=== PATIENT | male | born 1950 | race African-American/Black ===

== ENCOUNTER 2017-06-21 20:58 | Inpatient (IN) | payer BC, OTHER ==
[~2017-06-21] VITALS: Ht 182.9 cm; Wt 98.9 kg
--- NOTE | ~2017-06-21 | EKG ---
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 : 1950 Requested By: Darshana Aguilar Order Number: [id number] MD: Wolf Jade Measurements Intervals [place] Rate: 117 P: 50 WY: 159 QRS: 51 QRSD: 104 T: 155 QT: 341 QTc: 476 Interpretive Statements Sinus tachycardia LAE, consider biatrial enlargement Nonspecific ST segment abnormality Nonspecific intraventricular conduction delay No previous ECG available for comparison Electronically Signed On 06-23-2017 15:23:06 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
--- NOTE | ~2017-06-21 | CATHLAB ---
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 A 5FR MULTIPACK ANGLED #[id number] sheath was inserted into the RFA^. Coronary angiography was performed using coronary diagnostic catheters. The right coronary system was accessed and visualized with a 5FR AL1 #[id number] catheter. The left coronary system was accessed and visualized with a 5FR AL1 #[id number] catheter. The left ventricle was accessed and visualized with a PIGTAIL catheter. Left ventricular/Aortic Valve gradient assessed via catheter pullback. Closure device was deployed with a 5 Fr MYNXGRIP 5F #[id number]. The patient tolerated the procedure well and there were no complications associated with the procedure. 12.58 Intraoperative Conscious Sedation Sedation start time: Case end Time: 13.18 Versed mg Fluoro Time: 6.40 minutes Dose: DAP 7339.89 cGycm2 1033 mGy Contrast Type and Amount: Omnipaque 115 ml Coronary Angiography The patient's coronary anatomy is right dominant. Diagnostic Cath Left Main Large caliber vessel of anomalous origin long length and bifurcating into a left circumflex and left anterior descending well [facility] [address] [place] [address] INVASIVE PROCEDURE REPORT Name: TIFFANIE DAVIS Room #: 351-P DIS IN M.R.#: [id number] Admission: 06/21/17 Attend Phys: Callum Miguel, Discharge: 06/25/17 Date of : 52 Date of Service: 06/25/17 1937 Report #: [id number] into the proximal third of the left ventricular chamber LAD Small-caliber type I vessel which has mild luminal irregularities no significant high-grade lesions are noted small diagonal branches originate in its course Diagonal 1 Small-caliber vessel without significant high-grade lesion Circumflex Small-caliber vessel which has multiple branches at a greater than trifurcation. A small marginal branch has a subtotal occlusion with evidence of thrombus. Remainder of the circumflex branches have moderate less than 50% irregularities Right Coronary Large-caliber vessel with luminal irregularities of 20-30% until the crux of the heart where it tapers rapidly to the bifurcation of the distal RCA and the posterior descending artery which are quite small in caliber and have multiple serial 90+ percent lesions in the 80s diminutive branches R PDA Diminutive size vessel diffusely diseased a greater than 70% lesions throughout its course. Left Ventriculography Left Ventriculography was not performed. Hemodynamics The aortic pressure is 143/82 mmHg with a mean of 109 mmHg. The left ventricular pressure is 146/12 mmHg with a mean of mmHg. The left ventricular end diastolic pressure is 25 mmHg. Conclusion 1. 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 Abnormal hemodynamics elevated left ventricular end-diastolic pressures Recommendations Cardiac Risk Reduction Program Aggressive Medical Therapy <ELECTRONICALLY SIGNED> By: Raphael Hector MD 06/25/171936 36 36 Raphael Hector MD /INF
--- NOTE | ~2017-06-21 | HC ---
[facility] [place] [address] CONSULTATION Name: TIFFANIE DAVIS Room #: 351-P [facility] IN M.R.#: [id number] Admission: 06/21/17 Attend Phys: Callum Miguel DO Discharge: 06/25/17 Date of : 52 Report #: [id number] THIS REPORT FOR: //name// CC: Som Hodgson Conrad Michael DATE OF SERVICE: 06/22/2017 HISTORY OF PRESENT ILLNESS: This is a very pleasant 66-year-old -[place] male without prior history of coronary artery disease, who presented to the Emergency Room complaining of acute onset of shortness of breath. Upon further questioning, the shortness of breath had been present prior to the day of admission and had just progressed to the point of significant symptomatology. Apparently, he had been having some shortness of breath for several days prior to this. He denied any significant chest pain, pressure, tightness or heaviness, but consultation was obtained when troponins were noted to rise. Apparently, the patient had significant respiratory distress overnight requiring BiPAP from which he is now improved. He thought he was getting some sort of respiratory infection, but never sought any medical attention. He is a smoker and does not exercise routinely. PAST MEDICAL HISTORY: Significant for: 1. Hypertension. 2. Diabetes. 3. Erectile dysfunction. MEDICATIONS: Zestril, Diabeta, aspirin, Glucophage, Cialis, Norvasc, Bystolic and hydrochlorothiazide. ALLERGIES: No known drug allergies. PAST SURGICAL HISTORY: Reviewed in the chart. SOCIAL HISTORY: The patient smokes half a pack a day maximum, consumes alcohol daily with both beer and liquor. Does not follow a particular exercise regimen or dietary restriction. FAMILY HISTORY: Significant for no premature cardiovascular disease noted in first degree and second degree relatives. REVIEW OF SYSTEMS: Except for symptoms previously mentioned and those commensurate with comorbid state, the 10-point review of system is negative. PHYSICAL EXAMINATION: GENERAL: Well-developed, well-nourished -Nauruan male, resting [facility] [address] [place] [address] CONSULTATION Name: TIFFANIE DAVIS Room #: 351-P [facility] IN M.R.#: [id number] Admission: 06/21/17 Attend Phys: Callum Miguel DO Discharge: 06/25/17 Date of : 52 Report #: [id number] comfortably in no acute distress. VITAL SIGNS: Noted and reviewed in chart. RADIOLOGIC DATA: 1. Chest x-ray demonstrates infiltrates or edema bilaterally in the bases. 2. Electrocardiogram: Sinus tachycardia, nonspecific ST-T wave changes with voltage criteria for repolarization abnormalities consistent with left ventricular hypertrophy. LABORATORY DATA: Demonstrates a BNP of 451. Potassium 3.5. BUN and creatinine are 22 and 1.2. H and H is 16.7 and 48.8 with a platelet count of 199,000. IMPRESSION: 1. Elevated troponins in an individual who had significant work of breathing, which may have been the cause of the elevation of the troponins. But, nonetheless, he does have significant risk factors and it is reasonable to proceed with perfusion scanning on Saturday. We will schedule him for that then. If troponins rise even higher, then we will proceed to angiography as a more definitive option. 2. Dyspnea, multifactorial, treated with BiPAP and antibiotics, improved as per primary care. 3. Hypertension. We will monitor blood pressure and make sure that those are adequate and well controlled. <ELECTRONICALLY SIGNED> By: Raphael Hector MD 06/28/17 1118 1449 2131 Raphael Hector MD /nt
--- NOTE | ~2017-06-21 | HC ---
[facility] [address] CONSULTATION Name: GURJITTIFFANIE Elias Room #: 351-P ADM IN M.R.#: [id number] Admission: 06/21/17 Attend Phys: Callum Miguel DO Discharge: Date of : 52 Report #: [id number] THIS REPORT FOR: //name// CC: Som Hodgson Conrad Ko DATE OF SERVICE: 06/23/2017 ATTENDING PHYSICIAN: Som Bond MD CONSULTATION REQUESTED BY: Dr. Miguel. REASON FOR CONSULTATION: Possible pneumonia. HISTORY OF PRESENT ILLNESS: The patient is a 66-year-old man, admitted through the Emergency Room with sudden onset of increasing shortness of breath after having finished a rather spicy and salty [place] meal. The patient relates that he was doing well prior to that, but after having had this big meal he went on to developing shortness of breath. Upon querying the patient about possibility of fevers related several days prior to this acute shortness of breath, he may have had some night sweats, but he was having rather heavy covers. The patient was evaluated by Dr. Hector who performed echocardiogram and EKG, and he is scheduled for cardiac scan on Saturday. The patient relates he had been previously told to have a heart murmur. PAST MEDICAL HISTORY: Hypertension. Diabetes mellitus type 2. Question heart murmur. Cigarette smoking. DRUG ALLERGIES: None listed. MEDICATIONS: The patient is on treatment with enoxaparin 40 mg subQ at bedtime, azithromycin 500 mg IV daily, Atrovent/albuterol inhalation treatment every 4 hours, amlodipine besylate 10 mg daily, lisinopril 40 mg daily, aspirin 81 mg daily, glyburide 5 mg daily, ceftriaxone 1 gram daily, guaifenesin ER 600 mg b.i.d., metformin 1 g b.i.d., insulin lispro per sliding scale, p.r.n. glucose/glucagon, polyethylene glycol 17 grams daily, ondansetron 4 mg IV q.4 hours p.r.n. SOCIAL HISTORY: See H and P. FAMILY HISTORY: See H and P and previous consultation. REVIEW OF SYSTEMS: As above. PHYSICAL EXAMINATION: [facility] [address] [place] [address] CONSULTATION Name: TIFFANIE DAVIS Room #: 351-P [facility] IN ..#: [id number] Admission: 06/21/17 Attend Phys: Callum Miguel DO Discharge: Date of : 52 Report #: [id number] GENERAL: A well-developed, not toxic looking man, in no distress. VITAL SIGNS: Afebrile since admission, temperature maximum 99, pulse 100, respirations 18, BP 145/97, height 6 feet, weight 218 pounds, O2 saturation 96% on 2 liters nasal cannula. He had been 93% on room air. HEENMT: Within range. NECK: Supple, no thyromegaly, no jugular venous congestion. LUNGS: Clear to auscultation. HEART: Recent ejection systolic murmur left lower sternal border. ABDOMEN: Soft, no masses or megaly. GENITALIA AND RECTAL: Deferred. EXTREMITIES: No clubbing, cyanosis. NEUROLOGIC: Grossly within normal limits. LABORATORY DATA: The following abnormals were detected, potassium 3.3 mEq per liter, chloride 108 millimoles per liter, glucose 174 mg/dL. Troponin 0.19, mildly elevated. NT-proBNP 451. WBC normal on admission and repeated today is 5800, hemoglobin 14.1 g/dL, platelets 161,000. The white blood cell count differential on admission revealed 59% neutrophils, 27% lymphocytes. The hemoglobin A1c is 6.4% with estimated average sugars of 137. ABGs on 06/21/2017 revealed pH 7.36, pCO2 of 42, pO2 of 87.2, bicarbonate 24, lactate mildly elevated at 2.4 and this set of gases was on FiO2 of 50%. MICROBIOLOGY DATA: The rapid influenza A and B antigens are negative. Blood cultures negative. RADIOLOGY EVALUATION: The patient had a chest x-ray done on admission that revealed bibasilar infiltrates, right greater than left as well as some mild pulmonary venous congestion. A repeat chest x-ray today revealed significant improvement of pulmonary infiltrates, which makes me suspect we are dealing with congestive heart failure. Echocardiogram revealed left ventricle normal size, ejection fraction of 50-55% with moderate diastolic dysfunction. The left atrium moderately dilated as well as the right atrium. There is mild aortic regurgitation, mitral annular calcification noted. EKG revealed some biatrial enlargement, sinus tachycardia and repolarization abnormalities, question anterolateral ischemia. ASSESSMENT: 1. Bilateral pulmonary infiltrates with rapid resolution -- suspect congestive heart failure despite only mild elevation of NT-proBNP. 2. Hypertension. 3. Diabetes mellitus. 4. Possible aortic valvular disease, mild. SUGGESTIONS: Recommend obtaining ESR and CRP. If those are normal, possibly speaks against infectious process. Favor switching Zithromax to by mouth and few more doses of Rocephin and possible discontinue this drug. The patient is [facility] [address] [place] [address] CONSULTATION Name: TIFFANIE DAVIS Room #: 351-P ADM IN M.R.#: [id number] Admission: 06/21/17 Attend Phys: Callum Miguel DO Discharge: Date of : 52 Report #: [id number] scheduled for cardiac scan on Saturday. Dr. Miguel, thank you for requesting my suggestions. <ELECTRONICALLY SIGNED> By: Riccardo Chau MD 06/24/17 1154 0927 1229 Riccardo Chau MD /nt
--- NOTE | ~2017-06-21 | 2DMMODE ---
[facility] [address] [place] [address] 2 D/M-MODE ECHOCARDIOGRAM Name: TIFFANIE DAVIS Room #: 351-P ADM IN M.R.#: [id number] Admission: 06/21/17 Attend Phys: Som Bond MD Discharge: Date of : 52 Date of Service: 06/22/17 1337 Report #: [id number] THIS REPORT FOR: //name// APPROVED REPORT Study performed: 06/22/2017 10:35:51 EXAM: Comprehensive 2D, Doppler, and color-flow Echocardiogram Patient Location: ER Room #: 15 Status: on-call BSA: 2.23 HR: 99 bpm BP: 147/88 mmHg Rhythm: Tachycardia Other Information Study Quality: Adequate Indications Short of breath, chest pain. Hx: HTN, DM, tobacco abuse. 2D Dimensions RVDd: 40.33 mm LVEF(%): 44.80 (>50%) IVSd: 13.12 (7-11mm) LVOT Diam: 24.99 (18-24mm) LVDd: 49.20 mm PWd: 11.40 (7-11mm) Ascending Ao: 41.93 (22-36mm) LVDs: 38.23 (25-40mm) Aortic Root: 41.85 mm Lao's LVEF: 44.80 % Volumes Left Atrial Volume (Systole) Single Plane 4CH: 71.94 mL Single Plane 2CH: 105.65 mL LA ESV Index: 41.00 mL/m2 Aortic Valve AoV Peak Memo.: 1.34 m/s AO Peak Gr.: 7.16 mmHg LVOT Max P.22 mmHg LVOT Max V: 1.25 m/s BIB Vmax: 4.57 cm2 Mitral Valve E/A Ratio: 1.8 MV Decel. Time: 177.17 ms [facility] [place] [address] 2 D/M-MODE ECHOCARDIOGRAM Name: TIFFANIE DAVIS Room #: 351-P ADM IN M.R.#: [id number] Admission: 06/21/17 Attend Phys: Som Bond MD Discharge: Date of : 52 Date of Service: 06/22/17 1337 Report #: [id number] MV E Max Memo.: 1.62 m/s MV A Memo.: 0.88 m/s MV PHT: 51.38 ms IVRT: 50.75 ms Pulmonary Valve PV Peak Memo.: 1.19 m/s PV Peak Gr.: 5.63 mmHg Pulmonary Vein P Vein S: 0.41 m/s P Vein D: 0.82 m/s P Vein S/D Ratio: 0.50 Tricuspid Valve TR Peak Memo.: 3.20 m/s RAP Estimate: 5.00 mmHg TR Peak Gr.: 40.94 mmHg PA Pressure: 46.00 mmHg Left Ventricle The left ventricle is normal size. Moderate septal hypertrophy. The left ventricular systolic function is normal. LVEF is 50-55%. Moderate diastolic dysfunction is present (pseudonormal filling). Right Ventricle The right ventricle is normal size. The right ventricular systolic function is normal. Atria Left atrium is moderately dilated. Right atrium is mildly dilated. Aortic Valve The aortic valve is normal in structure. Mild aortic regurgitation. There is no aortic valvular stenosis. Mitral Valve The mitral valve is normal in structure. Moderate mitral annular calcification. Moderate to severe mitral regurgitation. Eccentric jet. Tricuspid Valve The tricuspid valve is normal in structure. Trace to mild tricuspid regurgitation. Estimated PAP is 45-50mmHg. Pulmonic Valve [address] [address] 2 D/M-MODE ECHOCARDIOGRAM Name: TIFFANIE DAVIS Room #: 351-P [facility] IN M.R.#: [id number] Admission: 06/21/17 Attend Phys: Som Bond MD Discharge: Date of : 52 Date of Service: 06/22/17 1337 Report #: [id number] The pulmonary valve is normal in structure. Mild pulmonic regurgitation. Great Vessels Aortic root is dilated at 4.2cm. Ascending aorta is dilated at 4.2cm. IVC is normal in size and collapses >50% with inspiration. Pericardium There is no pericardial effusion. <Conclusion> The left ventricle is normal size. LVEF is 50-55%. Left atrium is moderately dilated. Right atrium is mildly dilated. The aortic valve is normal in structure. Mild aortic regurgitation. The mitral valve is normal in structure. Moderate mitral annular calcification. Moderate to severe mitral regurgitation. Eccentric jet. The tricuspid valve is normal in structure. Trace to mild tricuspid regurgitation. Estimated PAP is 45-50mmHg. The pulmonary valve is normal in structure. Mild pulmonic regurgitation. Ascending aorta is dilated at 4.2cm. Aortic root is dilated at 4.2cm. There is no pericardial effusion. <ELECTRONICALLY SIGNED> By: Raphael Hector MD 06/22/17 1337 133 133 Raphael Hector MD /INF
--- NOTE | ~2017-06-21 | HC ---
[facility] [place] [address] CONSULTATION Name: TIFFANIE DAVIS Room #: 351-P [facility] IN M.R.#: [id number] Admission: 06/21/17 Attend Phys: Som Bond MD Discharge: Date of : 52 Report #: [id number] THIS REPORT FOR: //name// CC: Som Rodriguez PRIMARY CARE PHYSICIAN: [facility]. REFERRAL PHYSICIAN: Dr. Bond. REASON FOR REFERRAL: Hypoxia. HISTORY OF PRESENT ILLNESS: The patient is a 66-year-old -Armenian male who presents to the Emergency Room with progressive dyspnea. Chest x-ray shows bilateral infiltrates. A pulmonary consultation was requested. The patient states that he has been in his usual state of health until about 3 days ago when he started to develop upper respiratory tract congestion. Symptoms did not progress. Yesterday evening prior to presentation to the ER, he was at a [place] place eating dinner along with spices. Shortly after dinner, he just began to feel short of breath. Symptoms were severe enough where he presented to the Emergency Room. Chest x-ray revealed bibasilar infiltrates greater in the right than the left. The patient denies aspirating. Denies any past history of chronic lung disease. He does smoke about a pack a day. 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 He gets a yearly flu vaccine. He has received his Pneumovax about a year ago. He has not had a Prevnar 13. PAST MEDICAL HISTORY: Notable for diabetes and hypertension. ALLERGIES: None to medications. HOME MEDICATIONS: Include Zestril, DiaBeta, aspirin, Glucophage, Cialis and Norvasc. FAMILY HISTORY: Noncontributory. SOCIAL HISTORY: He does smoke about a pack a day and drinks socially. 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 REVIEW OF SYSTEMS: As mentioned above, otherwise 10-point system reviewed and negative. [facility] [address] [place] [address] CONSULTATION Name: TIFFANIE DAVIS Room #: 351-P [facility] IN [facility].#: [id number] Admission: 06/21/17 Attend Phys: Som Bond MD Discharge: Date of : 52 Report #: [id number] PHYSICAL EXAMINATION: GENERAL: He is awake, alert, in no apparent distress. HEENT: Normocephalic and atraumatic. NECK: Supple without any lymphadenopathy or thyromegaly. CHEST: Breath sounds are good with few scattered crackles in the bases. No wheezes. CARDIOVASCULAR: Normal S1 and S2. There is no murmur or gallop. There is no JVD. There is no carotid bruit. Pulses are 2+/4+ bilaterally. ABDOMEN: Soft and nontender. No organomegaly or masses felt. GENITOURINARY: Deferred. RECTAL: Deferred. EXTREMITIES: There is no edema, cyanosis or clubbing. LABORATORY DATA: Chest x-ray again shows bibasilar infiltrates greater in the right than the left. Echocardiogram showed normal left ventricular function, ejection fraction of 50-55%, left atrium is moderately dilated, right atrium is mildly dilated, aortic valve and mitral valve are grossly unremarkable except for moderate mitral annular calcification. Aortic valve was unremarkable. Mitral valve shows moderate to severe mitral regurgitation, pulmonary artery pressure measured approximately 45-50. Troponin 0.19. EKG shows left atrial enlargement, otherwise subtle abnormalities suggest ischemia. Electrolytes are normal. Creatinine 0.7. WBC 7100 and hemoglobin is 16.7. No evidence of bandemia. Arterial blood gas revealed pH 7.36, pCO2 of 42 and pO2 87 on FiO2 of 50%. IMPRESSION: 1. Acute hypoxic respiratory failure in this 66-year-old -Armenian male. He has had 3 days of upper respiratory tract congestion. Chest x-ray shows bibasilar infiltrates. Echocardiogram noted showing moderate to severe mitral regurgitation. CBC shows no evidence of leukocytosis. Troponin is mildly elevated. EKG noted. Etiology is probably related to viral syndrome given clinical history. However, based on echocardiographic findings, cannot rule out acute systolic heart failure. Note that EKG and troponin is mildly abnormal. 2. Bibasilar infiltrate, as mentioned above. Radiographs suggest infectious process rather than heart failure. Would rule out influenza A and B, obtain sputum for Gram stain and culture sensitivity, would also recommend broad-spectrum antibiotics. 3. Mildly elevated troponin, abnormal EKG, would consult Cardiology for further evaluation. 4. Valvular heart disease with moderate to severe mitral regurgitation. 5. Hypertension. 6. Diabetes mellitus. RECOMMENDATION: Broad spectrum antibiotics, influenza screen, check sputum for [address] [address] CONSULTATION Name: TIFFANIE DAVIS Room #: 351-P [facility] IN M.R.#: [id number] Admission: 06/21/17 Attend Phys: Som Bond MD Discharge: Date of : 52 Report #: [id number] Gram stain, culture and sensitivity and cardiac evaluation. DVT and GI prophylaxis will be addressed. Thank you for this consultation. <ELECTRONICALLY SIGNED> By: Conrad Rodriguez MD 06/23/17 1714 1547 0327 Conrad Rodriguez MD /nt
[~2017-06-21 20:58] MED LIST: BAYER CHEWABLE81 MG PO; BYSTOLIC20 MG; DIABETA 5MG TABL5 MG PO; GLUCOPHAGE XR500 MG; HYDROCHLOROTHIA50 MG; LISINOPRIL40 MG PO; NORCO 5-325 TA1 EACH PO
[2017-06-21 20:59] VITALS: BP 184/109
[2017-06-21] MEDS ORDERED: METFORMIN HCL500 MG PO (21:06)
[2017-06-21] MEDS ORDERED: NORVASC10 MG PO (21:07)
[2017-06-21] MEDS ORDERED: CIALIS5 MG PO (21:07)
[2017-06-21 21:19] LABS: ABSOLUTE NEUTROPHILS 4.2 thou/uL (1.4-8.2); BASOPHILS 1.1 % (0.0-2.0); EOSINOPHILS 2.9 % (0.0-3.0); HEMATOCRIT 48.8 % (42.0-52.0); HEMOGLOBIN 16.7 gm/dL (14.0-18.0); LYMPHOCYTES 27.7 % (24.0-44.0); MCH 32.9 pg (26.0-34.0); MCHC 34.3 g/dL (28.0-37.0); MCV 95.9 fL (80.0-100.0); MONOCYTES 8.4 % (1.0-8.0); PLATELET COUNT 199 thou/uL (150-400); POLYS 59.9 % (36.0-66.0); RBC 5.09 mil/uL (4.50-6.00); RDW 13.8 % (10.5-14.5); WBC 7.1 thou/uL (4.0-11.0)
[2017-06-21 21:22] LABS: CALCIUM 9.6 mg/dL (8.5-10.1); CREATININE 1.2 mg/dL (0.7-1.3); POTASSIUM 3.5 mmol/L (3.5-5.1)
[2017-06-21 21:31] LABS: TROPONIN-I 0.04 ng/mL (<0.06)
[2017-06-21 22:14] LABS: BE(vivo) -1.4 mmol/L (-2 to +3); PCO2 42.9 mmHg (35.0-45.0); PO2 87.2 mmHg (80.0-100.0); pH 7.366 (7.360-7.450); sO2 96.3 % (92.0-98.0)
[2017-06-22 04:55] LABS: CREATININE 0.7 mg/dL (0.7-1.3); POTASSIUM 3.7 mmol/L (3.5-5.1)
[2017-06-22 11:00] VITALS: BP 147/88
[2017-06-22 11:45] VITALS: BP 152/80
[2017-06-22 16:06] LABS: GLYCOHEMOGLOBIN (HGB A1C) 6.4 % (4.8-5.6)
[2017-06-22 16:30] VITALS: BP 168/99
[2017-06-22 19:47] VITALS: BP 144/100
[2017-06-22 23:32] VITALS: BP 145/97
[2017-06-22 23:33] VITALS: BP 145/97
[2017-06-23 04:31] VITALS: BP 144/96
[2017-06-23 06:30] LABS: HEMATOCRIT 41.4 % (42.0-52.0); MCH 32.6 pg (26.0-34.0); MCV 95.6 fL (80.0-100.0); RBC 4.32 mil/uL (4.50-6.00); RDW 13.3 % (10.5-14.5); WBC 5.8 thou/uL (4.0-11.0)
[2017-06-23 06:35] LABS: HEMOGLOBIN 14.1 gm/dL (14.0-18.0)
[2017-06-23 06:37] LABS: CALCIUM 9.2 mg/dL (8.5-10.1); CREATININE 0.8 mg/dL (0.7-1.3); POTASSIUM 3.3 mmol/L (3.5-5.1)
[2017-06-23 19:55] VITALS: BP 146/97
[2017-06-24 03:55] VITALS: BP 154/95
[2017-06-24 05:04] LABS: CALCIUM 8.9 mg/dL (8.5-10.1); CREATININE 0.7 mg/dL (0.7-1.3); POTASSIUM 3.1 mmol/L (3.5-5.1)
[2017-06-24 08:29] VITALS: BP 157/106
[2017-06-24 20:20] VITALS: BP 139/96
[2017-06-25 05:52] LABS: ABSOLUTE NEUTROPHILS 3.1 thou/uL (1.4-8.2); BASOPHILS 0.9 % (0.0-2.0); EOSINOPHILS 4.4 % (0.0-3.0); HEMATOCRIT 41.5 % (42.0-52.0); HEMOGLOBIN 14.3 gm/dL (14.0-18.0); LYMPHOCYTES 27.1 % (24.0-44.0); MCH 32.6 pg (26.0-34.0); MCHC 34.5 g/dL (28.0-37.0); MCV 94.5 fL (80.0-100.0); MONOCYTES 9.5 % (1.0-8.0); PLATELET COUNT 178 thou/uL (150-400); POLYS 58.1 % (36.0-66.0); RDW 13.2 % (10.5-14.5); WBC 5.3 thou/uL (4.0-11.0)
[2017-06-25 06:00] LABS: CALCIUM 8.6 mg/dL (8.5-10.1); CREATININE 0.7 mg/dL (0.7-1.3); POTASSIUM 3.3 mmol/L (3.5-5.1)
[2017-06-25 08:35] VITALS: BP 143/67
[2017-06-25 08:45] VITALS: BP 143/67
[2017-06-25] MEDS ORDERED: PLAVIX 75 MG TA75 M1 PO (08:46)
[2017-06-25] MEDS ORDERED: TOPROL XL25 MG PO (08:52)
[2017-06-25] MEDS ORDERED: CEFUROXIME250 MG PO (08:54)
[2017-06-25 10:00] VITALS: BP 143/67
== END 2017-06-25 10:22 | disposition home or self-care (01) | DRG 286 ==
LOC: ER 20:58 → EROBS 21:54 → 3W 21:54 → EROBS 23:20 → 3W 06-22 12:27
PROVIDERS: Emergency Medicine; Family Medicine; Internal Medicine Pulmonary Disease; Nurse Practitioner Family
PROC: 5A09357 Assistance with Respiratory Ventilation, Less than 24 Consecutive Hours, Continuous Positive Airway Pressure (ICD-10-PCS; 2017-06-21)
PROC: 4A023N7 Measurement of Cardiac Sampling and Pressure, Left Heart, Percutaneous Approach (ICD-10-PCS; principal; 2017-06-25)
PROC: B2111ZZ Fluoroscopy of Multiple Coronary Arteries using Low Osmolar Contrast (ICD-10-PCS; principal; 2017-06-25)
PROC: B2151ZZ Fluoroscopy of Left Heart using Low Osmolar Contrast (ICD-10-PCS; principal; 2017-06-25)
DX: I11.0 Hypertensive heart disease with heart failure (principal); J18.9 Pneumonia, unspecified organism; J96.01 Acute respiratory failure with hypoxia; E11.9 Type 2 diabetes mellitus without complications; F17.210 Nicotine dependence, cigarettes, uncomplicated; I34.0 Nonrheumatic mitral (valve) insufficiency; I50.9 Heart failure, unspecified; E87.6 Hypokalemia; Z79.899 Other long term (current) drug therapy; Z82.49 Family history of ischemic heart disease and other diseases of the circulatory system
CPT/HCPCS: 10879